=== PATIENT | female | born 1975 | race Caucasian/White ===

== ENCOUNTER → 2016-06-12 06:59 | Day surgery (SDC) | payer MEDICARE, MEDICAID ==
--- NOTE | 2016-06-09 16:19 | HP ---
HISTORY AND PHYSICAL: DATE OF SURGERY: 06/12/16 SURGEON: Dottie Mancuso MD. PROCEDURE: Left knee arthroscopy with partial meniscectomy, possible chondroplasty, possible synovectomy. HISTORY OF PRESENT ILLNESS: Ms. Davila is a 40-year-old female with complaints of left knee pain. She has failed conservative management and has elected to proceed with a left knee arthroscopy. PAST MEDICAL HISTORY: Schizoaffective disorder, high cholesterol, obesity, and history of MRSA. PAST SURGICAL HISTORY: Right ankle ORIF, removal of right ankle hardware. CURRENT MEDICATIONS: 1. Atorvastatin. 2. Calcium. 3. Vraylar. 4. Invega. ALLERGIES: PENICILLIN, LITHIUM, HALDOL, LAMICTAL, and ZYPREXA. FAMILY HISTORY: Colon and breast cancer. SOCIAL HISTORY: She is a 40-year-old female. She lives alone. She does not work. She does not use drugs or alcohol, and she denies tobacco. REVIEW OF SYSTEMS: A complete 14-point review of systems was reviewed with the patient; it is positive for occasional dizziness secondary to her current medications, and she has a history of MRSA. PHYSICAL EXAMINATION GENERAL: She is a 40-year-old obese female. She is in no acute distress. She is alert and oriented x3. VITAL SIGNS: She stands 5 feet 6-1/2 inches tall, weighs 282 pounds. Blood pressure is 139/73. Her heart rate is 81. HEENT: Normocephalic, atraumatic. NECK: Supple. No palpable lymph nodes. Trachea is midline. PULMONARY: The lungs are clear to auscultation bilaterally. CARDIOVASCULAR: Regular rate and rhythm. Strong S1, S2. No murmurs, gallops or rubs. ABDOMEN: Soft, nontender, nondistended. NEUROLOGIC: Cranial nerves II through XII are intact. MUSCULOSKELETAL: Left lower extremity, the skin is intact. She has full range of motion of the left knee. She has tenderness over the medial joint line. Her lower extremity muscle group strengths are intact at 5/5. She has intact sensation and 2+ dorsalis pedis pulses. ASSESSMENT AND PLAN: Ms. Davila is a 40-year-old female with complaints of left knee pain. She has elected to proceed with a left knee arthroscopy with partial meniscectomy, possible chondroplasty, possible synovectomy. The surgery is scheduled for 06/12/[address] Mancuso. Tramadol and ibuprofen were sent to her pharmacy for postoperative pain control. She will see Dr. Mancuso back in 10 to 14 days after the surgery. CARMELINA BAH [id number]/[facility] #: [id number] [facility] HOSPITALJuan M
[~2016-06-12 06:59] MED LIST: Buffered Lidocaine 1% SYR 3ML* 3 ML/SYR SYRINGE INTRADERM ONE; Bupivacaine 0.5% SDV PF* 30 ML VIAL ONE; Clindamycin 900 MG IVPREMIX(* 900 MG/50 ML SDV IV ONE; Dexamethasone IV* 4 MG/ML 1 ML (4 MG) IV SLOW PU ONE; Dexamethasone IV* 4 MG/ML 1 ML (4 MG) ONE; Dexmedetomidine* 200 MCG/2 ML 2 ML VIAL ONE; DiMENhydriNATE IV* 50 MG/ML VIAL IV PUSH PRN; DiMENhydriNATE IV* 50 MG/ML VIAL ONE; EPINEPHrine AMP 1 MG/ML ONE; Famotidine IV* 10 MG/ML 2 ML (20 mg) IV ONE; Famotidine IV* 10 MG/ML 2 ML (20 mg) ONE; HYDROmorphone INJ* 1 MG/ML CARPUJECT SYRINGE IV PRN; Ketorolac INJ* 30 MG/ML 1 ML VIAL ONE; Lidocaine 2% PF * 5 ML VIAL ONE; Midazolam* 1 MG/ML 2 ML VIAL (2 MG) ONE; Ondansetron INJ* 2 MG/ML VIAL IV PRN; Ondansetron INJ* 2 MG/ML VIAL ONE; Propofol* 10 MG/ML 20 ML BTL IV PUSH ONE; Scopolamine 1.5 mg* PATCH TRANSDERM PRN; Scopolamine PATCH Remove* 1 NOTE MISC PATCH OFF ONE; fentaNYL* 50 MCG/ML 2 ML VIAL (100 MCG VIAL) IV PRN; fentaNYL* 50 MCG/ML 2 ML VIAL (100 MCG VIAL) ONE; methylPREDNISolone ACETATE 80* 80 MG/ML 1 ML VIAL ONE
[2016-06-12 07:14] LABS: Manual Entry Verification AS; UR Preg Internal Control QC Line Present; UR Preg Kit Lot# 6030156
[2016-06-12 10:36] VITALS: BP 117/72
--- NOTE | 2016-06-13 03:45 | OP ---
DATE OF OPERATION: 06/12/16 - [facility] DATE OF : 71 ATTENDING SURGEON: Dottie Mancuso MD DOULA: CARMELINA Davis ANESTHESIOLOGIST: Dr. Fleming. ANESTHESIA: General. PRE-OP DIAGNOSES: Left knee medial meniscal tear, osteoarthritis. POST-OP DIAGNOSES: Left knee medial meniscal tear, osteoarthritis. OPERATIVE PROCEDURE: Left knee arthroscopy with partial medial meniscectomy and patellofemoral chondroplasty. COMPLICATIONS: None. EBL: Less than 25 cc. BRIEF HISTORY/INDICATION: Ms. Davila is a 40-year-old female seen in my clinic with several months of left knee pain after a hike. She had felt a shift in her knee and since that time had posteromedial joint line pain. Radiograph showed some moderate arthritic changes. Her history and physical exam was consistent with a medial meniscal tear, which was confirmed on MRI. The patient failed conservative treatment with antiinflammatories, intraarticular injection, and physical therapy. She elected to undergo left knee arthroscopy with partial medial meniscectomy and possible chondroplasty. Informed consent was obtained from the patient. She understood the risks of surgery included but were not limited to bleeding, infection, damage to nearby structures, continued pain, need for further surgery, stroke, heart attack, blood clot, and . She wishes to proceed. INTRAOPERATIVE FINDINGS: Intraoperatively, the patient was noted to have a radial- type tear and degenerative-type tear of the posterior one-third of the medial meniscus in the white-red zone. She was noted to have grade 3 and 4 Outerbridge cartilage changes in the patellofemoral and medial compartment. DESCRIPTION OF PROCEDURE: Ms. Davila was identified in the preanesthesia unit. Her left lower extremity was marked as the correct operative side. Informed consent was signed and placed in the chart. The patient was taken to the operating room and placed under general anesthesia without difficulty. Left lower extremity was prepped and draped in the usual sterile fashion. Preop time-out was made to correctly identify the patient, side and site. Appropriate perioperative antibiotics were given within 1 hour of incision. A 0.5 cm anterolateral portal incision was made with a 15-blade and carried down through the capsule. Trocar was introduced. As soon as the water and light sources were turned on, there was immediate visualization of the suprapatellar pouch. A tour of the knee joint was performed. Patellofemoral compartment showed obvious exposed subchondral bone along the medial and lateral patellar facets with significant cartilage fraying. Trochlear groove of the femur had exposed subchondral bone. Medial gutter showed no significant plica or loose body. Medial compartment showed exposed subchondral bone along the weightbearing portion of the medial femoral condyle. This was grade 3 and 4 Outerbridge cartilage change. Posterior one-third of the medial meniscus showed a radial-type and degenerative-type tear involving the posterior horn of the medial meniscus. The ACL appeared to be intact. Figure-of-4 position showed lateral meniscus with no obvious tear. No significant degenerative changes in the lateral compartment. Under direct visualization, a medial portal incision was made with a 15-blade. Probe was introduced. A second tour of the knee joint was performed. There were no additional findings. Shaver and radiofrequency ablation wand were used to clear small amount of inflammatory debris from the anterior joint line to improve visualization. Radiofrequency ablation wand was then used to remove frayed cartilage along the patellofemoral compartment. Thus, chondroplasty was performed conservatively. Next, a straight biter and shaver were used to perform partial medial meniscectomy in the white-red zone of the posterior portion of the medial meniscus. Probe was used to ensure there was no further tearing or displaced fragments. Radio-frequency ablation wand was used to further smooth the edge of the meniscus at the site of the partial meniscectomy. The knee was copiously irrigated with sterile saline. All instruments were carefully removed. An intraarticular injection of 80 mg Depo-Medrol and 6 cc of 0.25% Marcaine was placed in the knee joint. Incisions were closed using interrupted 3-0 nylon. Incisions were covered using sterile Xeroform, 4x4s, and Webril. Dominic wrap and cold pack was placed over this. The patient's anesthesia was reversed without difficulty. She was taken to the PACU in stable condition. Intended weightbearing will be weightbearing as tolerated. Intended DVT prophylaxis will be aspirin daily for 2 weeks. She will follow up in 2 weeks for suture removal. [id number]/[facility] #: [id number] JOSIAS
== END | disposition home or self-care (01) ==
LOC: OR 06:59
PROVIDERS: ATTEND Orthopaedic Surgery Adult Reconstructive Orthopaedic Surgery
DX: S83.242A Other tear of medial meniscus, current injury, left knee, initial encounter (principal); X58.XXXA Exposure to other specified factors, initial encounter; Y93.01 Activity, walking, marching and hiking; Y92.9 Unspecified place or not applicable; M17.12 Unilateral primary osteoarthritis, left knee; Z88.0 Allergy status to penicillin; Z87.891 Personal history of nicotine dependence; F41.9 Anxiety disorder, unspecified; F32.9 Major depressive disorder, single episode, unspecified; F25.9 Schizoaffective disorder, unspecified; Z86.14 Personal history of Methicillin resistant Staphylococcus aureus infection; E66.01 Morbid (severe) obesity due to excess calories; Z88.8 Allergy status to other drugs, medicaments and biological substances
CPT/HCPCS: 81025; J0171; J1040; J1100; J1240; J1885; J2250; J2405; J2704; J3010

== ENCOUNTER 2016-12-06 08:23 | Emergency (ER) | payer MEDICARE, MEDICAID ==
[2016-12-06 08:36] VITALS: BP 137/88
--- NOTE | 2017-01-11 07:54 | UC ---
Isaias Waterman Nikita, scribed for Veronica Contreras DO on 12/06/16 at 0947 . General HPI - HPI Summary HPI Summary: This patient is a 41 year old F presenting to [facility] with a chief complaint of weakness/near-syncopal episodes since 1 month ago. The CC is described as intermittent for the past month. 2 episodes occurred within the past week (once while walking 4 days ago and once last night). She reports her mind just gave out and went to sleep during the night episode. The patient rates the pain 0/ 10 in severity. Symptoms aggravated by nothing. Symptoms alleviated by nothing. Patient reports being off-balance, trouble focusing, fatigue, and she cant relax. Pt reports she has checked her BP but nothing was unusual. Pt is concerned if her symptoms are mental or physical. PMHx of mental illnesses. Pt had a breakdown in and since then has had 5-7 visits to the hospital. - History of Current Complaint Chief Complaint: UCGeneralIllness Stated Complaint: LIMP LIMBS Time Seen by Provider: 12/06/16 09:08 Hx Obtained From: Patient Hx Last Menstrual Period: 11/20/16 Onset/Duration: Sudden Onset, Still Present Current Severity: None Pain Intensity: 0 Character: weakness and near-syncopal episodes Aggravating: nothing Alleviating: nothing Associated Signs & Symptoms: Positive: Other - Patient reports being off-balance , trouble focusing, fatigue, and she cant relax. Similar Episode/Dx as: 1 episode 4 days ago while walking; 1 episode last night before sleeping - Allergy/Home Medications Allergies/Adverse Reactions: Allergies Allergy/AdvReac Type Severity Reaction Status Date / Time Haloperidol [From Haldol] Allergy Severe Difficulty Verified 12/06/16 08:26 Breathing Lamotrigine [From Lamictal] Allergy Intermediate Rash Verified 12/06/16 08:26 Penicillins [PCN] Allergy Intermediate Nausea And Verified 12/06/16 08:26 Vomiting Olanzapine [From Zyprexa] AdvReac Severe Hallucinati Verified 12/06/16 08:26 ons Benztropine AdvReac Intermediate visual Verified 12/06/16 08:26 disturbance [place] AdvReac Intermediate Nausea Verified 12/06/16 08:26 PCN AND ALL DERIVITIVES Allergy GI Upset Uncoded 12/06/16 08:26 Home Medications: Home Medications Cariprazine HCl [Vraylar] 4.5 mg PO DAILY 12/06/16 [History Confirmed 12/06/16] buPROPion TAB* [Wellbutrin TAB*] 300 mg PO DAILY 12/06/16 [History Confirmed ] PMH/Surg Hx/FS Hx/Imm Hx Other Endocrine History: HLD Other Cardiovascular History: HTN Psychological History: Depression, Bipolar Disorder, Schizophrenia Other Psychological History: SI - Surgical History Surgical History: Yes Surgery Procedure, Year, and Place: 2008 R ankle ORIF(METAL WAS REMOVED) - Family History Known Family History: Positive: Other - Breast CA, depression, psychotic disorder - Social History Alcohol Use: None Substance Use Type: None Substance Use Comment - Amount & Last Used: pt states hx of drug use in past: marijuana, LSD Smoking Status (MU): Former Smoker When Did the Patient Quit Smoking/Using Tobacco: smokes sociallaly in college, 15 yrs ago - Immunization History Most Recent Influenza Vaccination: unk Most Recent Tetanus Shot: unk Most Recent Pneumonia Vaccination: unk Review of Systems Constitutional: Fatigue ENT: Other - Denies L neck and jaw pain Respiratory: Shortness Of Breath Cardiovascular: Other - Denies CP Gastrointestinal: Other - decreased appetite; Denies abdominal pain Musculoskeletal: Other: - Denies arm pain Neurological: Weakness, Other - off-balance, trouble focusing, "can't relax", dizziness, near-syncopal episodes All Other Systems Reviewed And Are Negative: Yes Physical Exam Triage Information Reviewed: Yes Vital Signs: Initial Vital Signs Temp 97.8 F 12/06/16 08:30 Pulse 94 12/06/16 08:30 Resp 20 12/06/16 08:30 BP 137/88 12/06/16 08:30 Pulse Ox 99 12/06/16 08:30 - Additional Comments Obese Appearance: Well-Appearing, No Pain Distress, Well-Nourished Eyes: conjunctiva clear, negative: discharge ENT: Hearing grossly normal, normal voice. Neck: Normal, Supple Respiratory/Lung Sounds: Lungs clear, Normal breath sounds, No respiratory distress, No accessory muscle use Cardiovascular: RRR, No murmur Musculoskeletal: Normal Neurological: Alert, muscle tone normal Psychiatric: Normal, age appropriate behavior Skin: Normal, other -- Warm, Dry, Normal color Course/Dx - Course Course Of Treatment: This patient is a 41 year old F presenting to [facility] with a chief complaint of weakness/near-syncopal episodes since 1 month ago. The CC is described as intermittent for the past month. 2 episodes occurred within the past week (once while walking 4 days ago and once last night). She reports her mind just gave out and went to sleep during the night episode. The patient rates the pain 0/10 in severity. Symptoms aggravated by nothing. Symptoms alleviated by nothing. Patient reports being off-balance, trouble focusing, dizziness, SOB, fatigue, decreased appetite, and she cant relax. Pt denies CP , L neck, jaw, and arm pain, and abdominal pain. Pt reports she has checked her BP but nothing was unusual. Pt is concerned if her symptoms are mental or physical. PMHx of mental illnesses. Pt had a breakdown in and since then has had 5-7 visits to the hospital. Medications reviewed this visit. BP noted. Pt will be discharged. Pt is agreeable with this plan. - Differential Dx - Multi-Symptom Provider Diagnoses: Elevated blood pressure without diagnosis of hypertension. Discharge - Discharge Plan Condition: Stable Disposition: AGAINST MEDICAL ADVICE Patient Education Materials: Near Syncope (ED), Lightheadedness (ED) Referrals: Cira Zaldivar MD [Primary Care Provider] - As Soon As Possible Additional Instructions: YOU ARE LEAVING AGAINST MEDICAL ADVISE. WE HAVE RECOMMENDED TRANSFER TO THE ED FOR THOROUGH EVALUATION OF YOUR DIZZINESS AND NEAR SYNCOPE. YOU HAVE REFUSED. YOUR RISKS INCLUDE PHYSICAL INJURY FROM FALLING OR MVA, DAMAGE TO THE HEART, CARDIAC ARRHYTHMIA, CARDIAC ARREST AND . THERE MAY ALSO BE OTHER RISKS THAT WE CAN NOT DETERMINE WE DO NOT KNOW WHAT IS CAUSING YOUR DIZZINESS AND NEAR SYNCOPE. IF YOU CHANGE YOUR MIND, YOU CAN STILL GO TO THE ED AT ANY TIME. YOU SHOULD NOT BE DRIVING WHILE YOU ARE HAVING THESE SYMPTOMS. The documentation as recorded by the Isaias barragan Nikita accurately reflects the service I personally performed and the decisions made by me, Veronica Contreras DO.
== END 2016-12-06 10:07 | disposition left against medical advice (07) ==
LOC: UCEAST 08:23
DX: R03.0 Elevated blood-pressure reading, without diagnosis of hypertension (principal); E78.5 Hyperlipidemia, unspecified; F31.9 Bipolar disorder, unspecified; F20.9 Schizophrenia, unspecified; Z88.8 Allergy status to other drugs, medicaments and biological substances; Z88.0 Allergy status to penicillin; Z87.891 Personal history of nicotine dependence
CPT/HCPCS: 99212; G0463

== ENCOUNTER 2017-09-03 19:14 | Emergency (ER) | payer MEDICARE, MEDICAID ==
[2017-09-03 19:52] LABS: ABS Basophils 0.1 10^3/ul (0-0.2); ABS Eosinophils 0.4 10^3/ul (0-0.6); ABS Monocytes 0.6 10^3/ul (0-0.8); ABS Neutrophils 6.1 10^3/ul (1.5-7.7); ABS Nucleated RBC 0 10^3/ul; Eosinophil % 3.2 % (0-6); Hematocrit 41 % (35-47); Lymphocyte % 35.8 % (25-47); Mean Corpuscular HGB Conc 34 g/dl (31-36); Mean Corpuscular Hemoglobin 28 pg (27-31); Mean Corpuscular Volume 82 fL (80-97); Mean Platelet Volume 8.9 um3 (7.4-10.4); Nucleated Red Blood Cells % 0.1; Platelet Count 239 10^3/ul (150-450); Red Cell Distribution Width 15 % (10.5-15); White Blood Count 11.1 10^3/ul (3.5-10.8)
[2017-09-03 20:09] LABS: EGFR Non-African American 66.3 (>60)
--- OUTSIDE RECORDS SUMMARY | 2017-09-03 20:10 | XMS REPORT ---
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 up:cpe/[id number] Morbid (severe) obesity due to excess caloriesComments:Counseled on heart healthy diet such as Mediterranean diet. Eat protein and vegetables first then carbohydrates last. Get at least 150 minutes of moderate aerobic activity or 75 minutes of vigorous aerobic activity a week, or a combination of moderate and vigorous activity. General goal of 30 minutes of physical activity a day.F25.8 Other schizoaffective disordersComments:continue medications following psychiatry in [place]72.2 Plantar fascial fibromatosisComments:seeing PT, refer orthoAllComments :~B_~U_Medication Management~b_~u_ Patient Understands medications she's taking ? Yes No Are there Barriers to Adherence? Yes No Has the patient been asked about herbal supplements and therapies, and OTC meds? Yes No
[2017-09-03 20:33] LABS: Urine Appearance Cloudy; Urine Blood Negative (Negative); Urine Color Yellow; Urine Ketones Negative (Negative); Urine Protein Negative (Negative); Urine Specific Gravity 1.004 (1.010-1.030); Urine Urobilinogen Negative (Negative)
--- NOTE | 2017-09-03 21:11 | ED ---
Ortega Waterman Stephanie, scribed for Cm Graves MD on 09/03/17 at 2011 . Psychiatric Complaint - HPI Summary HPI Summary: The pt is a 42 y/o F presenting to the ED with c/o SI that occurred at 19:27 today. She reports hx of depression. She has been trying new medications however , she does not believe they are working. - History Of Current Complaint Chief Complaint: EDMentalHealth Time Seen by Provider: 09/03/17 19:34 Hx Obtained From: Patient Hx Last Menstrual Period: 11/20/16 ?: No Onset/Duration: Gradual Onset, Still Present Timing: Intermittent Episode Lasting Severity Currently: Mild Character: Depressed Aggravating Factor(s): Nothing Alleviating Factor(s): Nothing Related History: Positive For: Prior Psychiatric Issues Has Suicidal: Reports: Thoughts - Allergies/Home Medications Allergies/Adverse Reactions: Allergies Allergy/AdvReac Type Severity Reaction Status Date / Time MS Haloperidol [From Haldol] Allergy Severe Difficulty Verified 12/06/16 08:26 Breathing MS Lamotrigine Allergy Intermediate Rash Verified 12/06/16 08:26 [From Lamictal] MS Penicillins [PCN] Allergy Intermediate Nausea And Verified 12/06/16 08:26 Vomiting MS Olanzapine [From Zyprexa] AdvReac Severe Hallucinati Verified 12/06/16 08:26 ons MS Benztropine [Benztropine] AdvReac Intermediate visual Verified 12/06/16 08:26 disturbance MS Adak [Adak] AdvReac Intermediate Nausea Verified 12/06/16 08:26 PCN AND ALL DERIVITIVES Allergy GI Upset Uncoded 12/06/16 08:26 Home Medications: Home Medications Atorvastatin* [Lipitor*] 10 mg PO DAILY 09/03/17 [History Confirmed 09/03/17] Brexpiprazole (NF) [Rexulti (NF)] 2 mg PO DAILY 09/03/17 [History Confirmed ] Ketoconazole 2 % CREAM (NF) [Nizoral 2% CREAM (NF)] 1 applic TOPICAL DAILY 09/03 [History Confirmed 09/03/17] metFORMIN* [Glucophage 500 MG TAB *] 500 mg PO DAILY 09/03/17 [History Confirmed 09/03/17] PMH/Surg Hx/FS Hx/Imm Hx Endocrine/Hematology History: Denies: Hx Diabetes - pre-diabetic, resolved with diet Cardiovascular History: Reports: Hx Hypercholesterolemia, Other Cardiovascular Problems/Disorders - high cholesterol, morbid obestiy, hyperlipidemia Denies: Hx Hypertension, Hx Pacemaker/ICD Musculoskeletal History: Reports: Hx Back Problems, Other Musculoskeletal History - osteoarthritis knee-left Sensory History: Reports: Hx Contacts or Glasses - contact lens Denies: Hx Hearing Aid Opthamlomology History: Reports: Hx Contacts or Glasses - contact lens Neurological History: Reports: Other Neuro Impairments/Disorders - schizoaffective diagnosis, depressive type Psychiatric History: Reports: Hx Anxiety, Hx Attention Deficit Hyperactivity Disorder - h/o treatment, not current, Hx Depression, Hx Inpatient Treatment, Hx Community Mental Health Tx, Hx Schizophrenia - h/o dx, Hx Bipolar Disorder - h/o dx, Hx Suicide Attempt Denies: Hx Eating Disorder, Hx Panic Disorder, Hx of Violent Episodes Against Others, Hx Substance Abuse - Cancer History Hx Chemotherapy: No Hx Radiation Therapy: No - Surgical History Surgery Procedure, Year, and Place: 2007 R ankle ORIF(METAL WAS REMOVED) Hx Anesthesia Reactions: No Infectious Disease History: No Infectious Disease History: Denies: Hx Clostridium Difficile, Hx Hepatitis, Hx Human Immunodeficiency Virus (HIV), Hx of Known/Suspected MRSA, Hx Shingles, Hx Tuberculosis, Hx Known/ Suspected VRE, Hx Known/Suspected VRSA, History Other Infectious Disease, Traveled Outside the [place] in Last 30 Days - Family History Known Family History: Positive: Other - Breast CA, depression, psychotic disorder Negative: Renal Disease - Social History Occupation: Disabled Lives: Alone Alcohol Use: Occasionally Hx Substance Use: No Substance Use Type: Reports: None Substance Use Comment - Amount & Last Used: pt states hx of drug use in past: marijuana, LSD Hx Tobacco Use: Yes Smoking Status (MU): Former Smoker Review of Systems Negative: Fever Positive: Depressed, Other - SI All Other Systems Reviewed And Are Negative: Yes Physical Exam - Summary Physical Exam Summary: VITAL SIGNS: Reviewed. GENERAL: Patient is an obese FEMALE who is lying comfortable in the stretcher. Patient is not in any acute respiratory distress. HEAD AND FACE: No signs of trauma. No ecchymosis, hematomas or skull depressions. No sinus tenderness. EYES: PERRLA, EOMI x 2, No injected conjunctiva, no nystagmus. EARS: Hearing grossly intact. Ear canals and tympanic membranes are within normal limits. MOUTH: Oropharynx within normal limits. NECK: Supple, trachea is midline, no adenopathy, no JVD, no carotid bruit, no c- spine tenderness, neck with full ROM. CHEST: Symmetric, no tenderness at palpation LUNGS: Clear to auscultation bilaterally. No wheezing or crackles. CVS: Regular rate and rhythm, S1 and S2 present, no murmurs or gallops appreciated. ABDOMEN: Soft, non-tender. No signs of distention. No rebound no guarding, and no masses palpated. Bowel sounds are normal. EXTREMITIES: FROM in all major joints, no edema, no cyanosis or clubbing. NEURO: Alert and oriented x 3. No acute neurological deficits. Speech is normal and follows commands. SKIN: Dry and warm Triage Information Reviewed: Yes Vital Signs On Initial Exam: Initial Vitals Temp Pulse Resp BP Pulse Ox 97.6 F 91 18 135/86 95 09/03/17 19:25 09/03/17 19:25 09/03/17 19:25 09/03/17 19:25 09/03/17 19:25 Vital Signs Reviewed: Yes Diagnostics - Vital Signs Vital Signs Temp Pulse Resp BP Pulse Ox 09/03/17 19:25 97.6 F 91 18 135/86 95 - Laboratory Lab Results: Lab Results 09/03/17 Range/Units 19:46 WBC 11.1 H (3.5-10.8) 10^3/ul RBC 5.00 (4.00-5.40) 10^6/ul Hgb 14.0 (12.0-16.0) g/dl Hct 41 (35-47) % MCV 82 (80-97) fL MCH 28 (27-31) pg MCHC 34 (31-36) g/dl RDW 15 (10.5-15) % Plt Count 239 (150-450) 10^3/ul MPV 8.9 (7.4-10.4) um3 Neut % (Auto) 54.8 (38-83) % Lymph % (Auto) 35.8 (25-47) % [place] % (Auto) 5.4 (0-7) % Eos % (Auto) 3.2 (0-6) % Baso % (Auto) 0.8 (0-2) % Absolute Neuts (auto) 6.1 (1.5-7.7) 10^3/ul Absolute Lymphs (auto) 4.0 (1.0-4.8) 10^3/ul Absolute Monos (auto) 0.6 (0-0.8) 10^3/ul Absolute Eos (auto) 0.4 (0-0.6) 10^3/ul Absolute Basos (auto) 0.1 (0-0.2) 10^3/ul Absolute Nucleated RBC 0 10^3/ul Nucleated RBC % 0.1 Result Diagrams: 09/03/17 19:46 09/03/17 19:46 Lab Statement: Any lab studies that have been ordered have been reviewed, and results considered in the medical decision making process. Course/Dx - Course Assessment/Plan: Blood work w/o a significant abnormality. She is medically cleared. She is awaiting for a MHE. Patient is hemodynamically stable and A+O x 3. Patient would be signed out to Dr. Mora at shift change. - Differential Dx/Clinical Impression Differential Diagnosis/HQI/PQRI: Positive: Anxiety, Depression, Suicidal Ideation Provider Diagnosis: Depression Discharge - Sign-Out/Discharge Documenting (check all that apply): Sign-Out Patient Signing out patient TO: Foster Mora - Discharge Plan Condition: Stable Referrals: Cira Zaldivar MD [Primary Care Provider] - - Billing Disposition and Condition Condition: STABLE The documentation as recorded by the Ortega barragan Stephanie accurately reflects the service I personally performed and the decisions made by , Cm Graves MD.
[2017-09-04 07:00] VITALS: BP 124/81
--- NOTE | 2017-09-04 19:33 | ED ---
Camila Waterman Elizabeth, scribed for Foster Mora MD on 09/04/17 at 0637 . Progress - Progress Note Progress Note: Patient was signed out from Dr. Graves to Dr. Mora upon physician shift change pending mental health evaluation. - Consult/PCP Time Called: 00:00 Course/Dx - Course Course Of Treatment: Psychiatry able to evaluate pt prior to sign out, with plan for discharge home with outpatient follow up. - Diagnoses Provider Diagnoses: Depression Discharge - Sign-Out/Discharge Documenting (check all that apply): Discharge/Admit/Transfer Signing out patient TO: Esa Yi Receiving patient FROM: Foster Mora - Discharge Plan Condition: Stable Disposition: HOME Patient Education Materials: Depression (ED) Referrals: Cira Zaldivar MD [Primary Care Provider] - - Billing Disposition and Condition Condition: STABLE Disposition: Home The documentation as recorded by the Camila barragan Elizabeth accurately reflects the service I personally performed and the decisions made by Abby coffman Omari A, MD.
== END 2017-09-04 08:06 | disposition home or self-care (01) ==
LOC: ED 19:14
DX: F32.9 Major depressive disorder, single episode, unspecified (principal); Z87.891 Personal history of nicotine dependence; Z88.0 Allergy status to penicillin; Z88.8 Allergy status to other drugs, medicaments and biological substances
CPT/HCPCS: 36415; 80053; 80307; 80320; 80329; 81003; 84443; 85025; 99284; G0480